=== PATIENT | female | born 1970 | race African-American/Black ===

== ENCOUNTER 2020-02-22 12:17 | Emergency (ER) | payer SELFPAY ==
[~2020-02-22] VITALS: Ht 167.6 cm; Wt 75.0 kg
[2020-02-22 12:55] VITALS: BP 122/57
[2020-02-22] MEDS ORDERED: HYDR-3164 PO (13:22)
[2020-02-22] MEDS ORDERED: SULF1TAB23 PO (13:22)
--- NOTE | 2020-02-22 13:23 | PHYS DOC ---
Past Medical History Past Medical History: No Pertinent History Past Surgical History: No Surgical History Smoking Status: Current Every Day Smoker Additional Information: 0.25/PPD Alcohol Use: None General Adult EDM: Chief Complaint: INSECT BITE HPI: HPI: Patient is a 49 year old female who presents with an insect bite to the left lower buttock that occurred 3 days ago. Patient reports the area is now firm tender to touch and very painful. Patient denies any fever. Review of Systems: Review of Systems: Constitutional: Denies fever or chills. [] Musculoskeletal: Denies back pain or joint pain. [] Integument: Reports left buttock insect bite Neurologic: Denies headache, focal weakness or sensory changes. [] Psychiatric: Denies depression or anxiety. [] Heart Score: Risk Factors: Risk Factors: DM, Current or recent (<one month) smoker, HTN, HLP, family history of CAD, obesity. Risk Scores: Score 0 - 3: 2.5% MACE over next 6 weeks - Discharge Home Score 4 - 6: 20.3% MACE over next 6 weeks - Admit for Clinical Observation Score 7 - 10: 72.7% MACE over next 6 weeks - Early Invasive Strategies Physical Exam: PE: Constitutional: Well developed, well nourished, no acute distress, non-toxic appearance. [] Skin: Warm, dry, left buttock with a nonindurated firm region approximately 2 x 2 cm. There is a bite matthieu in the center of the region, there is no necrosis. There is mild cellulitis around the region. The region is firm tender to touch with no fluctuance. Back: No tenderness, no CVA tenderness. [] Extremities: No tenderness, no cyanosis, no clubbing, ROM intact, no edema. [] Neurologic: Alert and oriented X 3, normal motor function, normal sensory function, no focal deficits noted. [] Psychologic: Affect normal, judgement normal, mood normal. [] Current Patient Data: Vital Signs: Vital Signs Date Time Temp Pulse Resp B/P (MAP) Pulse Ox O2 Delivery O2 Flow Rate FiO2 02/22/20 12:55 97.2 99 22 122/57 (78) 100 Room Air 97.2 EKG: EKG: [] Radiology/Procedures: Radiology/Procedures: [] Course & Med Decision Making: Course & Med Decision Making Pertinent Labs and Imaging studies reviewed. (See chart for details) Patient has an abscess with cellulitis to the left buttock with that is not ready to be drained. It is firm with no fluctuance. Tetanus was updated. Warm compresses recommended to the area. Discharged on Bactrim. Follow-up with primary care doctor in 1 to 2 weeks. Danielle Disclaimer: Danielle Disclaimer: This electronic medical record was generated, in whole or in part, using a voice recognition dictation system. Departure Departure Impression: Primary Impression: Cellulitis and abscess of buttock Disposition: HOME, SELF-CARE Condition: STABLE Referrals: CHANELLE ALCANTAR MD follow up in one week Patient Instructions: Abscess, Cellulitis, [id number] Additional Instructions: You have an abscess to the left buttock. Take the prescribed medications as ordered until completed. Follow-up with your doctor in 1 to 2 weeks. Apply warm compresses to the area twice a day. Come back to the ED at any point symptoms worsen. Scripts Hydrocodone/Apap 5-325 (NORCO 5-325 TABLET) 1 Each Tablet 1 TAB PO Q6HRS, #12 TAB Prov: ANIKA KENNEDY APRN 02/22/20 Sulfamethoxazole/Trimethoprim (BACTRIM 400-80 MG TABLET) 1 Each Tablet 1 TAB PO BID for 10 Days, #20 TAB 0 Refills Prov: ANIKA KENNEDY APRN 02/22/20 Justicifation of Admission Dx: Justifications for Admission: Justification of Admission Dx: N/A ANIKA KENNEDY APRN Feb 22, 2020 13:23
[2020-02-22] MEDS ORDERED: DIPH,PERTUSS(ACELL),TET VAC/PF 0.5 ML SYRINGE. VAX IM ONE (13:30)
== END 2020-02-22 13:35 | disposition home or self-care (01) ==
LOC: ER 12:17
DX: S30.860A Insect bite (nonvenomous) of lower back and pelvis, initial encounter (principal); L03.317 Cellulitis of buttock; F17.200 Nicotine dependence, unspecified, uncomplicated; W57.XXXA Bitten or stung by nonvenomous insect and other nonvenomous arthropods, initial encounter; Y93.89 Activity, other specified; Y92.89 Other specified places as the place of occurrence of the external cause; Y99.8 Other external cause status
CPT/HCPCS: 99283